=== PATIENT | male | born 1960 | race Caucasian/White ===

== ENCOUNTER → 2023-12-08 14:44 | Outpatient (REF) | payer BC, SELFPAY | LOC: HWRAD 14:44 | PROVIDERS: ATTENDING PHYSICIAN Specialist; FAMILY PHYSICIAN Physician Assistant Medical | DX: C67.9 Malignant neoplasm of bladder, unspecified (principal) | CPT/HCPCS: 74177; Q9967 ==

== ENCOUNTER 2023-12-17 06:56 | Day surgery (SDC) | payer BC, SELFPAY ==
[2023-12-05 08:35] VITALS: BMI 33.8
[2023-12-05 08:59] LABS: Hematocrit 43.8 % (39.0-52.0); Hemoglobin 15.1 g/dL (13.0-18.0); Mean Corp Hgb Conc. 34.5 g/dL (33.0-37.0); Mean Corpuscular Hgb 31.9 pg (27.0-31.0); Mean Corpuscular Volume 92.4 fL (80.0-94.0); Mean Platelet Volume 9.7 fL (7.4-10.4); Platelet Count 336 10^3/uL (130-400); Red Blood Cell Count 4.74 10^6/uL (4.70-6.10); Red Cell Dist. Width 13.2 % (11.5-14.5); White Blood Cell Count 6.4 10^3/uL (4.8-10.8)
[2023-12-05 09:23] LABS: Blood Urea Nitrogen 24 mg/dl (9-20); Calcium 10.5 mg/dl (8.4-10.2); Carbon Dioxide 24 mmol/L (22-30); Chloride 99 mmol/L (98-107); Estimated Creatinine Clearance 86 ml/min; Glucose 192 mg/dl (70-99); Potassium 4.6 mmol/L (3.5-5.1); Sodium 138 mmol/L (135-145); eGFR > 60.00
[2023-12-17] VITALS (12 sets, daily range): BP systolic 110–160; BP diastolic 66–86; BMI 32.8; BMI 33.8
[2023-12-17 09:54] LABS: Glucose - Point of Care 159 mg/dl (70-99)
[2023-12-17] MEDS: CYSVIEW KIT 100 MG INTRAVES (10:03)
[2023-12-17] MEDS: NORMOSOL-R/PLASMALYTE-A 1000 IV (10:15)
[2023-12-17 12:01] LABS: Glucose - Point of Care 121 mg/dl (70-99)
[2023-12-17] MEDS: SYRINGE NON-PUMP 50 MG IRRIG ×2 (12:02→12:03)
[2023-12-17] MEDS: SYRINGE NON-PUMP 50 ML IRRIG ×2 (12:02→12:03)
[2023-12-17] MEDS: Pyridium 200 MG PO (12:44)
[2023-12-17 14:00] LABS: Glucose - Point of Care 150 mg/dl (70-99)
== END 2023-12-17 14:25 | disposition home or self-care (01) ==
LOC: SDS 06:56
PROVIDERS: ATTENDING PHYSICIAN Specialist; FAMILY PHYSICIAN Physician Assistant Medical; OTHER PHYSICIAN Specialist
DX: C67.4 Malignant neoplasm of posterior wall of bladder (principal); N32.3 Diverticulum of bladder
CPT/HCPCS: 52240; C9738; 88305; 88307; 36415; 80048; 82962; 85027; 93005; J9201

== ENCOUNTER → 2023-12-30 06:32 | Day surgery (SDC) | payer BC, SELFPAY ==
[2023-12-30 08:01] LABS: Glucose - Point of Care 226 mg/dl (70-99)
== END ==
LOC: GI 06:32
PROVIDERS: ATTENDING PHYSICIAN Internal Medicine Gastroenterology
DX: Z12.11 Encounter for screening for malignant neoplasm of colon (principal); K57.30 Diverticulosis of large intestine without perforation or abscess without bleeding; K64.8 Other hemorrhoids; K31.7 Polyp of stomach and duodenum; R12 Heartburn; Z83.719 Family history of colon polyps, unspecified
CPT/HCPCS: 43239; G0105; 88305; 82962

== ENCOUNTER 2024-03-24 06:33 | Day surgery (SDC) | payer BC, SELFPAY ==
[2024-03-17 08:51] LABS: Hematocrit 37.9 % (39.0-52.0); Hemoglobin 13.3 g/dL (13.0-18.0); Mean Corp Hgb Conc. 35.1 g/dL (33.0-37.0); Mean Corpuscular Hgb 33.3 pg (27.0-31.0); Mean Corpuscular Volume 94.8 fL (80.0-94.0); Mean Platelet Volume 10.1 fL (7.4-10.4); Platelet Count 241 10^3/uL (130-400); Red Cell Dist. Width 12.7 % (11.5-14.5)
[2024-03-17 10:41] LABS: Blood Urea Nitrogen 21 mg/dl (9-20); Calcium 8.9 mg/dl (8.4-10.2); Carbon Dioxide 24 mmol/L (22-30); Chloride 99 mmol/L (98-107); Glucose 450 mg/dl (70-99); Potassium 4.2 mmol/L (3.5-5.1); Sodium 136 mmol/L (135-145); eGFR > 60.00
[2024-03-17 13:48] VITALS: BMI 35.0
--- NOTE | 2024-03-18 12:40 | PTCARENOTE ---
Lea in Dr. Bagley's office made aware of glucose 450 from 03/17/24.
[2024-03-24] VITALS (8 sets, daily range): BP systolic 132–163; BP diastolic 68–84; BMI 35.0
[2024-03-24 10:44] LABS: Glucose - Point of Care 218 mg/dl (70-99)
[2024-03-24] MEDS: NORMOSOL-R/PLASMALYTE-A 1000 IV (10:53)
[2024-03-24] MEDS: CYSVIEW KIT 100 MG INTRAVES (10:53)
[2024-03-24 12:20] LABS: Glucose - Point of Care 163 mg/dl (70-99)
[2024-03-24 13:08] LABS: Glucose - Point of Care 143 mg/dl (70-99)
[2024-03-24] MEDS: Pyridium 200 MG PO (13:33)
== END 2024-03-24 14:30 | disposition home or self-care (01) ==
LOC: SDS 06:33
PROVIDERS: ATTENDING PHYSICIAN Specialist; FAMILY PHYSICIAN Physician Assistant Medical
DX: N30.90 Cystitis, unspecified without hematuria (principal); N32.3 Diverticulum of bladder; Z85.51 Personal history of malignant neoplasm of bladder
CPT/HCPCS: 52204; C9738; 88305; 36415; 80048; 82962; 85027; A9589

== ENCOUNTER 2024-06-16 13:54 | Emergency (ER) | payer BC, SELFPAY ==
[2024-06-16 13:54] VITALS: BMI 34.9
[2024-06-16 13:55] VITALS: BP 127/76
[2024-06-16 14:00] VITALS: BP 102/65
--- NOTE | 2024-06-16 14:40 | ED.GENMED ---
History of Present Illness
General
Chief Complaint: Breathing Problem
Source: patient
Exam Limitations: none
Time Seen by Provider: 06/16/24 14:25
History of Present Illness
History of Present Illness:
63yoM with a history of bladder cancer currently receiving immunotherapy, coronary artery disease s/p PCI, type 2 diabetes, hypertension, hyperlipidemia, FRANKLIN on CPAP presenting with his for evaluation of fatigue. He initially started with a
cough about 2 weeks ago which has mostly resolved. He began having urinary frequency and urgency last week and was started on a 14-day course of Cipro by his urologist which he is still taking. He has been very fatigued over the last several days
and has been sleeping more which is unusual for him. He has been monitoring his vital signs at home and noted that his oxygen saturation was as low as 84% last night. He reports some dyspnea on exertion but denies any shortness of breath at rest.
He also reports lightheadedness primarily with position changes. No chest pain, fever, chills, leg swelling. Urinary symptoms have resolved.
Past History
Past History
ED Past Medical History: GERD, HTN, Hypercholesterolemia and Other (Diverticulosis, anxiety, depression)
ED Past Surgical History: Orthopedic and Tonsilectomy
Social History
Tobacco: Former smoker
Alcohol: Former
Drug: Former user (Cocaine in the 1980s)
Personal:
Living: with family
Phy Exam
General Physical Exam
General Presentation: well appearing and no apparent distress
General age: appears stated age
General Skin: warm and dry
General Habitus: normal
General Mental: alert
ENT Exam
ENT Exam: normocephalic
Cardiovascular Exam
Cardiovascular Exam: regular rate/rhythm, no edema and no murmur
Pulmonary Exam
Pulmonary Exam: lungs clear, no respiratory distress, no rales, no crackles, no rhonchi, no wheezing and other (Lungs CTA. Speaking in full sentences without difficulty. )
Neurological Exam
Neurological Exam: alert
[place] Coma Scale
Eye Opening: Spontaneous
Verbal Response: Oriented
Motor Response: Obeys Commands
GCS Total Score: 15
Skin Exam
Skin Exam: normal color and warm/dry
Psychiatric Exam
Psychiatric Exam: normal mood/affect
Scores
Heart Failure Risk
Heart Failure Risk Score: Not Applicable
Course
Orders/Labs/Results
Orders:
Orders
06/16/24 14:01
Electrocardiogram (*1) Urgent
Reason for Study: Shortness of Breath
EKG- Treatment ONCE
06/16/24 14:51
Cardiac Monitoring- Treatment ONCE
06/16/24 14:56
COVID-19 Antigen Urgent
Source: Nasal Swab
Complete Blood Count/With Diff Urgent
Comprehensive Metabolic Panel Urgent
D-Dimer Urgent
TSH Reflex To Free T4 Urgent
Troponin I Urgent
Urinalysis Reflex To Culture Urgent
Date Specimen was Collected: 06/16/24
Time Specimen was Collected: 14:53
Urine Microscopic Reflex Cult Urgent
Influenza A+B Rapid Molecular Urgent
CARTER Source: Nasal Swab
Specimen Description:
Urine Culture Urgent
CARTER Source: U
Specimen Description:
Date Specimen was Collected: 06/16/24
Time Specimen was Collected: 14:53
06/16/24 16:09
CR Chest - 2 Views Urgent
Comment:
Reason For Exam: SOB
Abnormal Lab Results
06/16/24
14:56
MCH 32.6 H pg
(27.0-31.0)
Absolute Monos (auto) 0.8 H 10^3/uL
(0.1-0.6)
BUN 29 H mg/dl
(9-20)
Glucose 215 H mg/dl
(70-99)
Calcium 10.4 H mg/dl
(8.4-10.2)
Leukocyte Esterase Rfl 2+ A
(Negative)
Urine RBC 3-6 A /HPF
(0-2)
Urine WBC (Reflex) 50-60 A /HPF
(0-5)
Urine Bacteria (Reflex) Moderate A
(Negative)
Urine Albumin (Reflex) 2+ A
(Neg - Trace)
06/16/24 14:56
06/16/24 14:56
Vital Signs
Initial and Last Documented VS:
Initial Vital Signs
Temp Pulse Resp BP Pulse Ox
98.8 F 109 18 127/76 97
06/16/24 13:55 06/16/24 13:55 06/16/24 13:55 06/16/24 13:55 06/16/24 13:55
Last Documented Vital Signs
Temp Pulse Resp BP Pulse Ox
98.8 F 80 22 126/76 100
06/16/24 13:55 06/16/24 16:45 06/16/24 16:45 06/16/24 17:25 06/16/24 17:25
MDM/Problems Addressed
Differential Diagnosis Includes:
63yoM here with fatigue x several days. Oxygen saturation reportedly low at home yesterday although oxygen is 97% on room air in triage. C/o dyspnea on exertion, no SOB at rest. He is well appearing in no distress. He is speaking in full sentences
and lungs CTA. Differential diagnosis includes but is not limited to: pneumonia, deconditioning, ACS, PE
Initial ED plan: EKG obtained in triage shows NSR without ischemic changes. Check cardiac labs, D-dimer, TSH, UA, COVID/flu swab, and CXR vs. CTA chest depending on D-dimer results.
*EKG
Interpreted by ED Provider?: Yes
EKG Intrepretation Date: 06/16/24
Heart Rate: 77
Rate: normal
Rhythm: sinus
[place]: normal axis
Interval: normal interval
QRS Pattern: normal QRS
Ischemia: no ischemia
*Critical Care Note
Total Time (30-74mins, 75-104mins- exclusive of procedures): Not Applicable
Update Note
Update Note:
Labs overall unremarkable including normal hemoglobin, TSH, and troponin. D-dimer normal making PE very unlikely. UA with 50-60 WBCs and moderate bacteria although there is also >30/HPF squamous epithelial cells suggesting contaminated sample. He
is currently on a 14 day course of Cipro for a UTI and has about 5 days remaining. Urinary symptoms have resolved since starting the antibiotic. He has no flank pain, vomiting, fever, or leukocytosis to suggest pyelonephritis. CXR is clear without
infiltrates. No episodes of hypoxia throughout ED stay. No indication for hospitalization. Unclear etiology of symptoms. He was advised to f/u closely with his PCP. ED return precautions discussed. Patient in agreement with plan and was discharged
in stable condition.
ED Attending Note
-
Portions of this chart may have been created with voice recognition software.� Occasional wrong word or��sound alike� substitutions may have occurred due to the inherent limitations of voice recognition software.
Discharge Plan
Departure
Patient Disposition: Home (Routine Discharge)
Date of Disposition: 06/16/24
Time of Disposition: 17:28
Patient with high blood pressure during this ER visit?: No
Discharge Problem:
Fatigue
Instructions: Fatigue - ED discharge instructions
Prescriptions:
No Action
aspirin 81 MG tablet,delayed release (DR/EC)
81 mg PO DAILY
omega 2-geh-wig-fish oil [Fish Oil] 1 EACH capsule
1,200 mg PO BID
duloxetine 60 MG capsule,delayed release(DR/EC)
60 mg PO DAILY
cholecalciferol (vitamin D3) 2,000 UNITS tablet
4,000 units PO DAILY
losartan-hydrochlorothiazide 100-25 mg Tablet
1 tab PO DAILY
metformin 1,000 mg Tablet
1,000 mg PO BID
insulin glargine [Lantus Solostar U-100 Insulin] 100 unit/mL (3 mL) Insulin Pen
15 unit SC DAILY
Mounjaro 7.5 mg/0.5 mL Pen Injector
7.5 mg SC QWEEK
nitroglycerin [nitroglycerin] 0.4 mg tablet, sublingual
0.4 mg sublingual [id number] PRN (Reason: chest pain) Qty: 25 2RF
atorvastatin 80 mg Tablet
80 mg PO DAILY
lansoprazole [Prevacid] 15 mg Capsule,Delayed Release(Dr/Ec)
15 mg PO DAILY
spironolactone 50 mg Tablet
50 mg PO DAILY
multivitamin Tablet
1 tab PO DAILY
ascorbic acid (vitamin C) [Vitamin C] 250 mg Tablet
250 mg PO DAILY
Referrals:
Lionel Maya PA-C [Family Provider] -
Activity Restrictions/Additional Instructions:
Please follow-up with your family doctor in the next 48 hours. 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 Return to the ER with any new or worsening symptoms.
Interventions
Interventions:
*Risk Screen - Suicide Last Done: 06/16/24 13:55
*General Assessment Last Done: 06/16/24 13:55
*Neglect/Abuse Screening Last Done: 06/16/24 13:55
*ED- Fall Risk Assessment Last Done: 06/16/24 15:21
*Nursing Disposition Last Done: 06/16/24 17:29
ED- Cardiac Assessment Last Done: 06/16/24 15:21
ED- Pulmonary Assessment Last Done: 06/16/24 15:21
Discharge Date and Time
Discharge Date/Time: 06/16/24 17:29
Print Language: [id number]
[2024-06-16 15:15] VITALS: BP 102/65
[2024-06-16 15:38] LABS: Urine Albumin 2+ (Neg - Trace); Urine Bilirubin Negative (Negative); Urine Character Clear (Clear); Urine Color Yellow; Urine Glucose Negative (Negative); Urine Ketone Negative (Negative); Urine Leukocyte 2+ (Negative); Urine Nitrite Negative (Negative); Urine Occult Blood Negative (Negative); Urine Specific Gravity 1.025 (<1.030); Urine Urobilinogen Negative (Neg - 1+)
[2024-06-16 15:48] LABS: COVID-19 Antigen Negative (Negative)
[2024-06-16 15:50] LABS: ALT (SGPT) 48 U/L (0-50); AST (SGOT) 35 U/L (17-59); Alkaline Phosphatase 67 U/L (38-126); Blood Urea Nitrogen 29 mg/dl (9-20); Calcium 10.4 mg/dl (8.4-10.2); Carbon Dioxide 25 mmol/L (22-30); Chloride 98 mmol/L (98-107); Estimated Creatinine Clearance 80 ml/min; Glucose 215 mg/dl (70-99); Sodium 139 mmol/L (135-145); Total Bilirubin 0.8 mg/dl (0.2-1.3); Total Protein 7.4 g/dl (6.3-8.2); eGFR > 60.00
[2024-06-16 15:51] LABS: % Basophils 0.7 % (0-2); % Eosinophils 1.3 % (0-6); % Immature Granulocytes 0.2 % (0-0.5); % Lymphocytes 23.3 % (20.5-51.1); % Neutrophils 66.5 % (42.2-75.2); Absolute Basophils 0.1 10^3/uL (0-0.2); Absolute Eosinophils 0.1 10^3/uL (0-0.7); Absolute Lymphocytes 2.3 10^3/uL (1.2-3.4); Absolute Monocytes 0.8 10^3/uL (0.1-0.6); Absolute Neutrophils 6.5 10^3/uL (1.4-6.5); Hematocrit 44.1 % (39.0-52.0); Hemoglobin 15.8 g/dL (13.0-18.0); Mean Corp Hgb Conc. 35.8 g/dL (33.0-37.0); Mean Corpuscular Hgb 32.6 pg (27.0-31.0); Mean Corpuscular Volume 91.1 fL (80.0-94.0); Mean Platelet Volume 9.4 fL (7.4-10.4); Nucleated Red Blood Cells % 0 % (-); Platelet Count 378 10^3/uL (130-400); Red Blood Cell Count 4.84 10^6/uL (4.70-6.10); White Blood Cell Count 9.8 10^3/uL (4.8-10.8)
[2024-06-16 15:55] LABS: Urine Squamous Cell >30 /LPF (Few)
[2024-06-16 15:56] LABS: Urine Bacteria Moderate (Negative); Urine White Cell 50-60 /HPF (0-5)
[2024-06-16 15:58] LABS: Troponin I < 0.012 ng/ml
[2024-06-16 15:59] LABS: D-Dimer < 0.27 ug/mlFEU (0.00-0.50)
[2024-06-16 16:00] VITALS: BP 124/77
[2024-06-16 17:24] VITALS: BP 138/122
[2024-06-16 17:25] VITALS: BP 126/76
== END 2024-06-16 17:29 | disposition home or self-care (01) ==
LOC: EMR 13:54
PROVIDERS: Physician Assistant; EMERGENCY PHYSICIAN Emergency Medicine; FAMILY PHYSICIAN Physician Assistant Medical
DX: R53.83 Other fatigue (principal); I25.10 Atherosclerotic heart disease of native coronary artery without angina pectoris; E11.9 Type 2 diabetes mellitus without complications; E78.00 Pure hypercholesterolemia, unspecified; G47.33 Obstructive sleep apnea (adult) (pediatric); I10 Essential (primary) hypertension; C67.9 Malignant neoplasm of bladder, unspecified; Z79.60 Long term (current) use of unspecified immunomodulators and immunosuppressants; Z87.891 Personal history of nicotine dependence; Z95.5 Presence of coronary angioplasty implant and graft; Z11.52 Encounter for screening for COVID-19
CPT/HCPCS: 99285; 71046; 80053; 81003; 81015; 84443; 84484; 85025; 85379; 87086; 87502; 87811; 93005

== ENCOUNTER → 2024-06-19 09:41 | Outpatient (REF) | payer BC, SELFPAY | LOC: RCS 09:41 | PROVIDERS: ATTENDING PHYSICIAN Nurse Practitioner; FAMILY PHYSICIAN Physician Assistant Medical | DX: R42 Dizziness and giddiness (principal) | CPT/HCPCS: 93225; 93226 ==

== ENCOUNTER → 2024-06-28 07:00 | Outpatient (REF) | payer BC, SELFPAY | LOC: RCS 07:00 | PROVIDERS: ATTENDING PHYSICIAN Nurse Practitioner; FAMILY PHYSICIAN Physician Assistant Medical | DX: R06.09 Other forms of dyspnea (principal) | CPT/HCPCS: 93306 ==

== ENCOUNTER → 2024-06-29 07:15 | Outpatient (REF) | payer BC, SELFPAY | LOC: HWRCS 07:15 | PROVIDERS: ATTENDING PHYSICIAN Nurse Practitioner; FAMILY PHYSICIAN Physician Assistant Medical | DX: R06.09 Other forms of dyspnea (principal) | CPT/HCPCS: 78452; 93017; A9500 ==

== ENCOUNTER → 2024-12-06 15:29 | Outpatient (REF) | payer BC, SELFPAY ==
[2024-12-06 16:09] LABS: Urine Character Cloudy (Clear)
[2024-12-06 17:10] LABS: Urine Squamous Cell 0-2 /LPF (Few)
[2024-12-06 17:11] LABS: Urine White Cell 50-60 /HPF (0-5)
== END ==
LOC: REG 15:29
PROVIDERS: ATTENDING PHYSICIAN Specialist; FAMILY PHYSICIAN Physician Assistant Medical
DX: N39.0 Urinary tract infection, site not specified (principal)
CPT/HCPCS: 81003; 81015; 87086